=== PATIENT | female | born 1990 | race Caucasian/White ===

== ENCOUNTER 2016-10-12 13:40 | Outpatient (CLI) | payer MEDICAID ==
[~2016-10-12] VITALS: Ht 167.6 cm; Wt 65.8 kg
[2016-10-12] MEDS ORDERED: PRENAT PO (14:05)
[2016-10-12 14:06] VITALS: Ht 167.6 cm; Wt 65.8 kg
[2016-10-12 14:07] VITALS: BP 109/55; PULSE 74; RESP 18
--- NOTE | 2016-10-12 14:30 | RADRPT ---
PROCEDURE: US OB biophysical profile. CLINICAL INDICATION: decreased movements, SROM TECHNIQUE: Multiple sonographic images of the pelvis were obtained. The images were reviewed on a PACS workstation. COMPARISON: No prior studies are available for comparison. FINDINGS: There is a single viable intrauterine gestation. Cardiac activity is present with 119 beats per min herson. There is a vertex presentation. The placenta is anterior. There is no evidence of placental abruption. There is a normal amount of amniotic fluid with an MIRIAM = 12.6 cm. Biophysical profile: movement 2/2 tone 2/2. breathing 2/2 MIRIAM 2/2 Total 10/26 RPTAT: AA . IMPRESSION: Normal biophysical profile. . .Latrell Bear MD, Date Time Electronically viewed and signed by .Latrell Bear MD, MD on 10/12/2016 14:29 .S/
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
--- NOTE | 2016-10-12 18:39 | TRIAGE ---
OB Triage Datetime Report Generated by CPN: 10/12/2016 18:39 Datetime: 10/12/2016 15:39 Membrane Status: Intact Datetime: 10/12/2016 15:17 Vaginal Exam Dilatation (cms): 0.0 Effacement (%): 0 Station: -3 Exam By: OGBODU RN Datetime: 10/12/2016 14:12 Assessment Type: Admission Assessment EGA: 31.5 Maternal Assessment Level of Consciousness: Fully Conscious DTR's/Clonus: DTRs 2+; No Clonus Headache: Denies Blurred Vision: No Respiratory Effort: Unlabored; Regular Rhythm; Equal Expansion Breath Sounds, Left: Clear and Equal Breath Sounds, Right: Clear and Equal Nausea/Vomiting: Denies RUQ Epigastric Pain: Denies Lower Extremities Edema: None Degree: None Upper Extremities Edema: None Degree: None Facial Edema: None Fall Risk Assessment History of Falling: (0) No Secondary Diagnosis: (0) No Ambulatory Aid: (0) Bedrest/Nurse Assist IV Therapy: (0) No Gait: (0) Normal/Bedrest/Immobile Mental Status: (0) Oriented to Own Ability Fall Score: 0 Fall Risk Score Definition: No Risk: No action required Labor Evaluation Frequency: 0 Pattern: Normal: <= 5 Contractions in 10 Minutes Resting Tone [place]: Relaxed Heart Rate FHR Baseline Rate: 130 Monitor Mode: External US FHR Baseline Changes: No Baseline Change Variability: Moderate 6-25 bpm Accelerations: 15X15 Decelerations: None Category: Category I Datetime: 10/12/2016 14:10 Time of Arrival: 10/12/2016 13:30 Arrived By: Ambulatory Arrived From: Home Chief Complaint: R/O SROM Movement: Present Contractions: Denies/Absent Rupture of Membranes: Unsure Vaginal Bleeding: None Vaginal Discharge: Denies Recent Sexual Intercouse: Denies Abdominal Trauma: Not Applicable Patient Complaints: None; Other Time Provider Notified: 10/12/2016 16:30 Provider Notified: DR. MCKENZIE Initial Plan: NST, ROM+, MIRIAM
== END 2016-10-12 17:48 | disposition home or self-care (01) ==
LOC: L-D 13:40 → OBT 13:40
PROVIDERS: ATTEND Obstetrics & Gynecology
DX: O60.03 Preterm labor without delivery, third trimester (principal); O99.333 Smoking (tobacco) complicating pregnancy, third trimester; Z3A.31 31 weeks gestation of pregnancy; F17.200 Nicotine dependence, unspecified, uncomplicated
CPT/HCPCS: 76818; 84112; Z7500; G0463

== ENCOUNTER 2016-11-11 01:37 | Outpatient (CLI) | payer MEDICAID ==
[~2016-11-11] VITALS: Ht 167.6 cm; Wt 67.0 kg
[~2016-11-11 01:37] MED LIST: PRENAT PO
[2016-11-11 01:59] VITALS: Ht 167.6 cm; Wt 67.0 kg
[2016-11-11 02:00] VITALS: BP 113/57; PULSE 95; RESP 18
--- NOTE | 2016-11-11 03:20 | RADRPT ---
PROCEDURE: US OB with biophysical profile. CLINICAL INDICATION: Labor TECHNIQUE: Multiple sonographic images of the pelvis were obtained. The images were reviewed on a PACS workstation. COMPARISON: 10/12/2016 FINDINGS: There is a single live intrauterine gestation. There is a normal amount of amniotic fluid with an MIRIAM = 10.12 cm cm. Cardiac activity is present with 128 beats per minute. There is a vertex presentation. The placenta is anterior and grade 2. MVP = 3.4 cm Biophysical profile: movement 2/2 tone 2/2. breathing 2/2 MIRIAM 2/2 Total 10/26 IMPRESSION: Normal biophysical profile. . RPTAT: HLBE Physician Uday Date Time Electronically viewed and signed by Xiomy Lafleur Physician on 11/11/2016 03:20 LE/
--- NOTE | 2016-11-11 03:23 | RADRPT ---
PROCEDURE: US OB. CLINICAL INDICATION: Labor TECHNIQUE: Multiple sonographic images of the pelvis were obtained. The images were reviewed on a PACS workstation. COMPARISON: 10/12/2016 FINDINGS: There is a single viable intrauterine gestation. Cardiac activity is present with 118-128 beats per minute. There is a vertex presentation. Measurements were made in order to determine age. The results are as follows: BPD =8.61 cm. HC =32.22 cm. AC =32.22 cm. FL =7.32 cm. Estimated gestational age of approximately 36 weeks and 1 day. The estimated date of delivery is 12/08/2016. The EFW = 2915 g (6 pounds 7 ounces) . Complete anatomic survey was not performed. The placenta is anterior. There is no evidence for an abruption or placenta previa. There is a normal amount of amniotic fluid with an MIRIAM = 10.1. IMPRESSION: Single viable intrauterine gestation of approximately 36 weeks and 1 day. The estimated date of del jocelyn is 12/08/2016. Estimated weight is 6 pounds 7 ounces). No abnormality is seen. . RPTAT: HLBE Physician Uday Date Time Electronically viewed and signed by Physician Uday on 11/11/2016 03:22 LE/
[2016-11-11 04:32] LABS: BASOPHILS % 0.2 % (0.0-2.0); EOSINOPHILS # 0.1 10^3/ul (0.0-0.5); EOSINOPHILS % 0.9 % (0.0-7.0); HEMATOCRIT 32.8 % (37.0-47.0); HEMOGLOBIN 11.2 g/dl (12.0-16.0); LYMPHOCYTES # 1.8 10^3/ul (0.8-2.9); LYMPHOCYTES % 18.2 % (15.0-51.0); MEAN CORPUSCULAR HEMOGLOBIN 31.7 pg (29.0-33.0); MEAN CORPUSCULAR HGB CONC 34.1 g/dl (32.0-37.0); MEAN CORPUSCULAR VOLUME 92.9 fl (82.0-101.0); MEAN PLATELET VOLUME 11.2 fl (7.4-10.4); MONOCYTE # 0.9 10^3/ul (0.3-0.9); MONOCYTES % 9.4 % (0.0-11.0); NEUTROPHILS % 70.6 % (39.0-77.0); PLATELET COUNT 263 10^3/UL (140-415); RED BLOOD COUNT 3.53 10^6/ul (4.20-5.40); RED CELL DISTRIBUTION WIDTH 13.2 % (11.5-14.5); WHITE BLOOD COUNT 9.7 10^3/ul (4.8-10.8)
[2016-11-11 04:47] LABS: ADD UMIC YES; UR ASCORBIC ACID NEGATIVE (NEGATIVE); UR BILIRUBIN (Dip) NEGATIVE (NEGATIVE); UR BLOOD (Dip) 3+ mg/dL (NEGATIVE); UR CLARITY CLEAR (CLEAR); UR COLOR STRAW (YELLOW); UR GLUCOSE (Dip) NEGATIVE (NEGATIVE); UR KETONES (Dip) NEGATIVE (NEGATIVE); UR LEUKOCYTE ESTERASE (Dip) NEGATIVE Leu/ul (NEGATIVE); UR NITRITE (Dip) NEGATIVE (NEGATIVE); UR RBC 8 /HPF (0-5); UR SPECIFIC GRAVITY (Dip) 1.006 (1.003-1.030); UR TOTAL PROTEIN (Dip) NEGATIVE (NEGATIVE); UR UROBILINOGEN (Dip) NEGATIVE (NEGATIVE)
[2016-11-11 05:01] LABS: BARBITURATES Negative (NEGATIVE); BENZODIAZEPINES Negative (NEGATIVE); CANNABINOIDS Positive (NEGATIVE); COCAINE Negative (NEGATIVE); OPIATES Negative (NEGATIVE)
--- NOTE | 2016-11-11 06:25 | PN ---
Triage Information Date/Time November 08, 2016 Reason for visit: Vag spotting / bleeding Weeks of Gestation 36 weeks /Para 1 para 0 Diabetes: none Hypertention: none Additional information 26-year-old with IUP at 36 weeks complaining of some bleeding after intercourse. She is unsure about rupture membrane. Denies any decreased movement or uterine contractions. Patient denies any other complaint. Objective Vital Signs Date Time Temp Pulse Resp B/P Pulse Ox O2 Delivery O2 Flow Rate FiO2 11/11/16 02:00 98.2 95 18 113/57 Room Air Heart Rate: 130's Heart Rate Comments Category 1 tracing Contractions between 5-10 minutes on the monitor. Patient does not feel them Patient observed for couple hours in the triage and there was no evidence of bleeding. Scant amount of bleeding during vaginal exam on the glove noted. Sterile vaginal examination: / U tox positive for marijuana. Patient has been using marijuana for anxiety. BPP: 10/26 R OM test negative. MIRIAM: 10.1 Results/Medications Result Diagram: 11/11/16 0325 Results 24 hrs Laboratory Tests Test 11/11/16 01:45 11/11/16 02:33 11/11/16 03:25 Urine Color STRAW Urine Clarity CLEAR Urine pH 7.0 Urine Specific [place] 1.006 Urine Ketones NEGATIVE Urine Nitrite NEGATIVE Urine Bilirubin NEGATIVE Urine Urobilinogen NEGATIVE Urine Leukocyte Esterase NEGATIVE Urine Microscopic RBC 8 H Urine Microscopic WBC 1 Urine Hemoglobin 3+ H Urine Glucose NEGATIVE Urine Total Protein NEGATIVE Urine Opiates Screen Negative Urine Barbiturates Negative Urine Amphetamines Screen Negative Urine Benzodiazepines Screen Negative Urine Cocaine Screen Negative Urine Cannabinoids Positive Membranes Rupture NEGATIVE White Blood Count 9.7 Red Blood Count 3.53 L Hemoglobin 11.2 L Hematocrit 32.8 L Mean Corpuscular Volume 92.9 Mean Corpuscular Hemoglobin 31.7 Mean Corpuscular Hemoglobin Concent 34.1 Red Cell Distribution Width 13.2 Platelet Count 263 Mean Platelet Volume 11.2 H Neutrophils % 70.6 Lymphocytes % 18.2 Monocytes % 9.4 Eosinophils % 0.9 Basophils % 0.2 Nucleated Red Blood Cells % 0.0 Neutrophils # (Manual) 7 Lymphocytes # 1.8 Monocytes # 0.9 Eosinophils # 0.1 Basophils # 0.0 Nucleated Red Blood Cells # 0.0 Imaging Results PROCEDURE: US OB with biophysical profile. CLINICAL INDICATION: Labor TECHNIQUE: Multiple sonographic images of the pelvis were obtained. The images were reviewed on a PACS workstation. COMPARISON: 10/12/2016 FINDINGS: There is a single live intrauterine gestation. There is a normal amount of amniotic fluid with an MIRIAM = 10.12 cm cm. Cardiac activity is present with 128 beats per minute. There is a vertex presentation. The placenta is anterior and grade 2. MVP = 3.4 cm Biophysical profile: movement 2/2 tone 2/2. breathing 2/2 MIRIAM 2/2 Total 88 IMPRESSION: Normal biophysical profile. ROCEDURE: US OB. CLINICAL INDICATION: Labor TECHNIQUE: Multiple sonographic images of the pelvis were obtained. The images were reviewed on a PACS workstation. COMPARISON: 10/12/2016 FINDINGS: There is a single viable intrauterine gestation. Cardiac activity is present with 118-128 beats per minute. There is a vertex presentation. Measurements were made in order to determine age. The results are as follows: BPD = 8.61 cm. HC = 32.22 cm. AC = 32.22 cm. FL = 7.32 cm. Estimated gestational age of approximately 36 weeks and 1 day. The estimated date of delivery is 12/08/2016. The EFW = 2915 g (6 pounds 7 ounces) . Complete anatomic survey was not performed. The placenta is anterior. There is no evidence for an abruption or placenta previa. There is a normal amount of amniotic fluid with an MIRIAM = 10.1. IMPRESSION: Single viable intrauterine gestation of approximately 36 weeks and 1 day. The estimated date of delivery is 12/08/2016. Estimated weight is 6 pounds 7 ounces). No abnormality is seen. . Disposition: Discharge Assessment/Plan IUP at 36 week No evidence of SROM or labor Rh+ Postcoital bleeding Stopped. No evidence of bleeding during monitoring in triage noted testing reassuring. Patient will be discharged home. Strict labor precaution and kick count and follow-up with primary OB office within 24 hours discussed Pelvic rest and modified bedrest at home suggested. Patient verbalized understanding. All questions were answered. AMELIA STEINER MD Nov 11, 2016 06:25
--- NOTE | 2016-11-11 06:55 | TRIAGE ---
OB Triage Datetime Report Generated by CPN: 11/11/2016 06:55 Datetime: 11/11/2016 05:30 Stage of : OB Triage Labor Evaluation Frequency: IRREG Monitor Mode: External Duration (sec)2399: 50-80 Quality: Mild Pattern: Normal: <= 5 Contractions in 10 Minutes Resting Tone [place]: Relaxed Heart Rate FHR Baseline Rate: 120 Monitor Mode: External US Variability: Moderate 6-25 bpm Accelerations: 15X15 Decelerations: None Category: Category I Pain Assessment Pain Scale: 3 Pain Presence: Intermittent Pain Type: Cramping Pain Location: Abdomen Pain Goal: 3 Pain Relief Measures: Comfort Measures Datetime: 11/11/2016 04:30 Stage of : OB Triage Labor Evaluation Frequency: IRREG Monitor Mode: External Duration (sec)2399: 50-80 Quality: Mild Pattern: Normal: <= 5 Contractions in 10 Minutes Resting Tone [place]: Relaxed Heart Rate FHR Baseline Rate: 120 Monitor Mode: External US Variability: Moderate 6-25 bpm Accelerations: 15X15 Decelerations: None Category: Category I Pain Assessment Pain Scale: 3 Pain Presence: Intermittent Pain Type: Cramping Pain Location: Abdomen Pain Goal: 3 Pain Relief Measures: Comfort Measures Datetime: 11/11/2016 03:30 Stage of : OB Triage Labor Evaluation Frequency: 3-6 Monitor Mode: External Duration (sec)2399: 50-80 Quality: Mild Pattern: Normal: <= 5 Contractions in 10 Minutes Resting Tone [place]: Relaxed Heart Rate FHR Baseline Rate: 120 Monitor Mode: External US Variability: Moderate 6-25 bpm Accelerations: 15X15 Decelerations: None Category: Category I Pain Assessment Pain Scale: 3 Pain Presence: Intermittent Pain Type: Cramping Pain Location: Abdomen Pain Goal: 3 Pain Relief Measures: Comfort Measures Datetime: 11/11/2016 02:30 Stage of : OB Triage Temperature Route: Oral Labor Evaluation Frequency: 2-7 Monitor Mode: External Duration (sec)2399: 50-80 Quality: Mild Pattern: Normal: <= 5 Contractions in 10 Minutes Resting Tone [place]: Relaxed Heart Rate FHR Baseline Rate: 125 Monitor Mode: External US Variability: Moderate 6-25 bpm Accelerations: 15X15 Decelerations: None Category: Category I Pain Assessment Pain Scale: 3 Pain Presence: Intermittent Pain Type: Cramping Pain Location: Abdomen Pain Goal: 3 Pain Relief Measures: Comfort Measures Datetime: 11/11/2016 02:20 Vaginal Exam Dilatation (cms): 1.0 Effacement (%): 60 Station: -2 Exam By: DARREN Vaginal Bleeding: Small Pool: Negative Cervix, Consistency: Moderate Cervix, Position: Posterior Datetime: 11/11/2016 02:01 Time of Arrival: 11/11/2016 01:30 EGA: 36.0 Arrived By: Wheelchair Arrived From: Home Chief Complaint: BLEEDING POST INTERCOURSE POSSIBLE SROM AND CXS Movement: Present Time Contractions Began: 11/11/2016 01:00 Rupture of Membranes: Unsure Vaginal Discharge: Present Recent Sexual Intercouse: Yes Abdominal Trauma: Not Applicable Additional Patient Complaints: TAKES MEDICAL MARIJUANA FOR ANXIETY, SMOKED IN AM Time Provider Notified: 11/11/2016 02:05 Provider Notified: JATIN Initial Plan: EFM, ASSESS, CALL MD FOR ORDERS Datetime: 11/11/2016 01:58 Assessment Type: Triage Maternal Assessment Level of Consciousness: Fully Conscious DTR's/Clonus: DTRs 2+; No Clonus Headache: Denies Blurred Vision: No Respiratory Effort: Unlabored; Regular Rhythm; Equal Expansion Breath Sounds, Left: Clear and Equal Breath Sounds, Right: Clear and Equal Nausea/Vomiting: Denies RUQ Epigastric Pain: Denies Lower Extremities Edema: None Upper Extremities Edema: None Facial Edema: None Fall Risk Assessment History of Falling: (0) No Secondary Diagnosis: (0) No Ambulatory Aid: (0) Bedrest/Nurse Assist IV Therapy: (0) No Gait: (0) Normal/Bedrest/Immobile Mental Status: (0) Oriented to Own Ability Fall Score: 0 Fall Risk Score Definition: No Risk: No action required Datetime: 10/12/2016 16:30 Labor Evaluation Frequency: 0 Monitor Mode: External Duration (sec)2399: 0 Resting Tone [place]: Relaxed Contraction Comments: NO UC'S NOTED Heart Rate FHR Baseline Rate: 135 Monitor Mode: External US Variability: Moderate 6-25 bpm Accelerations: 15X15 Decelerations: None Category: Category I Datetime: 10/12/2016 15:29 Labor Evaluation Frequency: 0 Monitor Mode: External Duration (sec)2399: 0 Resting Tone [place]: Relaxed Heart Rate FHR Baseline Rate: 125 Monitor Mode: External US Variability: Moderate 6-25 bpm Accelerations: 15X15 Decelerations: None Category: Category I Datetime: 10/12/2016 15:00 Maternal Assessment Level of Consciousness: Fully Conscious DTR's/Clonus: DTRs 2+; No Clonus Headache: Denies Blurred Vision: No Respiratory Effort: Unlabored; Regular Rhythm; Equal Expansion Breath Sounds, Left: Clear and Equal Breath Sounds, Right: Clear and Equal Nausea/Vomiting: Denies RUQ Epigastric Pain: Denies Facial Edema: None Fall Risk Assessment History of Falling: (0) No Secondary Diagnosis: (0) No Ambulatory Aid: (0) Bedrest/Nurse Assist IV Therapy: (0) No Gait: (0) Normal/Bedrest/Immobile Mental Status: (0) Oriented to Own Ability Fall Score: 0 Fall Risk Score Definition: No Risk: No action required Datetime: 10/12/2016 14:12 EGA: 31.5 Fall Score: 0 Fall Risk Score Definition: No Risk: No action required
== END 2016-11-11 05:40 | disposition home or self-care (01) ==
LOC: OBT 01:37 → L-D 01:40 → OBT 05:40
PROVIDERS: ATTEND Obstetrics & Gynecology
DX: O20.8 Other hemorrhage in early pregnancy (principal); Z3A.36 36 weeks gestation of pregnancy
CPT/HCPCS: 76815; 76818; 80307; 81001; 84112; 85025; Z7500; G0463

== ENCOUNTER 2016-11-22 00:10 | Outpatient (CLI) | payer MEDICAID ==
[~2016-11-22] VITALS: Ht 170.2 cm; Wt 67.2 kg
[2016-11-22 01:24] VITALS: Ht 170.2 cm; Wt 67.2 kg
[2016-11-22 01:25] VITALS: BP 108/64; PULSE 83; RESP 18
[2016-11-22 02:07] LABS: ADD UMIC NO; UR ASCORBIC ACID NEGATIVE (NEGATIVE); UR BACTERIA FEW /HPF (NONE SEEN); UR BILIRUBIN (Dip) NEGATIVE (NEGATIVE); UR BLOOD (Dip) NEGATIVE (NEGATIVE); UR CLARITY SLIGHTLY CLOUDY (CLEAR); UR COLOR YELLOW (YELLOW); UR GLUCOSE (Dip) NEGATIVE (NEGATIVE); UR KETONES (Dip) NEGATIVE (NEGATIVE); UR LEUKOCYTE ESTERASE (Dip) NEGATIVE Leu/ul (NEGATIVE); UR MUCUS FEW /HPF (NONE SEEN); UR NITRITE (Dip) NEGATIVE (NEGATIVE); UR RBC 1 /HPF (0-5); UR SPECIFIC GRAVITY (Dip) 1.018 (1.003-1.030); UR SQUAMOUS EPITHELIAL CELL FEW /HPF (FEW); UR TOTAL PROTEIN (Dip) NEGATIVE (NEGATIVE); UR UROBILINOGEN (Dip) 1+ mg/dL (NEGATIVE)
[2016-11-22 02:36] LABS: BARBITURATES Negative (NEGATIVE); BENZODIAZEPINES Negative (NEGATIVE); CANNABINOIDS Positive (NEGATIVE); COCAINE Negative (NEGATIVE); OPIATES Negative (NEGATIVE)
[2016-11-22] MEDS ORDERED: LACTATED RINGER'S 1,000 ML IV ONE (03:30)
--- NOTE | 2016-11-22 06:04 | TRIAGE ---
OB Triage Datetime Report Generated by CPN: 11/22/2016 06:04 Datetime: 11/22/2016 05:12 Stage of : OB Triage Datetime: 11/22/2016 04:15 Stage of : OB Triage Labor Evaluation Frequency: OCC Monitor Mode: External Duration (sec)2399: 40-80 Quality: Mild Pattern: Normal: <= 5 Contractions in 10 Minutes Resting Tone [place]: Relaxed Heart Rate FHR Baseline Rate: 125 Monitor Mode: External US FHR Baseline Changes: No Baseline Change Variability: Moderate 6-25 bpm Accelerations: 15X15 Decelerations: None Category: Category I Datetime: 11/22/2016 03:15 Stage of : OB Triage Labor Evaluation Frequency: OCC Monitor Mode: External Duration (sec)2399: 40-100 Quality: Mild Pattern: Normal: <= 5 Contractions in 10 Minutes Resting Tone [place]: Relaxed Heart Rate FHR Baseline Rate: 125 Monitor Mode: External US FHR Baseline Changes: No Baseline Change Variability: Moderate 6-25 bpm Accelerations: 15X15 Decelerations: None Category: Category I Datetime: 11/22/2016 02:15 Stage of : OB Triage Labor Evaluation Frequency: IRREG Monitor Mode: External Duration (sec)2399: 40-60 Quality: Mild Pattern: Normal: <= 5 Contractions in 10 Minutes Resting Tone [place]: Relaxed Heart Rate FHR Baseline Rate: 125 Monitor Mode: External US FHR Baseline Changes: No Baseline Change Variability: Moderate 6-25 bpm Accelerations: 15X15 Decelerations: None Category: Category I Datetime: 11/22/2016 01:15 Stage of : OB Triage Labor Evaluation Frequency: 5-10 Monitor Mode: External Duration (sec)2399: 70-120 Quality: Mild Pattern: Normal: <= 5 Contractions in 10 Minutes Resting Tone [place]: Relaxed Heart Rate FHR Baseline Rate: 125 Monitor Mode: External US Variability: Moderate 6-25 bpm Accelerations: 15X15 Decelerations: None Category: Category I Datetime: 11/22/2016 00:40 Vaginal Exam Dilatation (cms): 1.0 Effacement (%): 60 Station: -2 Exam By: Shankar VIVAS Datetime: 11/22/2016 00:30 Stage of : OB Triage Assessment Type: Triage Time Provider Notified: 11/22/2016 00:53 Maternal Assessment Level of Consciousness: Fully Conscious DTR's/Clonus: DTRs 2+; No Clonus Headache: Denies Blurred Vision: No Respiratory Effort: Unlabored; Regular Rhythm; Equal Expansion Breath Sounds, Left: Clear and Equal Breath Sounds, Right: Clear and Equal Nausea/Vomiting: Denies RUQ Epigastric Pain: Denies Lower Extremities Edema: None Degree: None Upper Extremities Edema: None Degree: None Facial Edema: None Temperature Route: Oral Fall Risk Assessment History of Falling: (0) No Secondary Diagnosis: (0) No Ambulatory Aid: (0) Bedrest/Nurse Assist IV Therapy: (0) No Gait: (0) Normal/Bedrest/Immobile Mental Status: (0) Oriented to Own Ability Fall Score: 0 Fall Risk Score Definition: No Risk: No action required Pain Assessment Pain Scale: 7 Pain Presence: Constant Pain Type: Sharp; Pressure Pain Location: Abdomen (Annotations: LOWER ABDOMEN) Pain Relief Measures: Comfort Measures Datetime: 11/22/2016 00:28 Contraction Comments: APPLIED Comments: APPLIED Datetime: 11/22/2016 00:15 Time of Arrival: 11/22/2016 00:12 EGA: 37.4 Arrived By: Wheelchair Arrived From: Emergency Dept Chief Complaint: LOWER ABDOMINAL PAIN SINCE 12PM Movement: Present Contractions: Irregular Rupture of Membranes: Denies Vaginal Bleeding: None Vaginal Discharge: Denies Recent Sexual Intercouse: Denies Abdominal Trauma: Not Applicable Patient Complaints: Other Initial Plan: EFM, SVE, CALL OB Datetime: 11/11/2016 02:01 EGA: 36.0 Datetime: 11/11/2016 01:58 Fall Score: 0 Fall Risk Score Definition: No Risk: No action required Datetime: 10/12/2016 15:00 Fall Score: 0 Fall Risk Score Definition: No Risk: No action required Datetime: 10/12/2016 14:12 EGA: 31.5 Fall Score: 0 Fall Risk Score Definition: No Risk: No action required
--- NOTE | 2016-11-22 06:59 | PN ---
Triage Information Date/Time 11/22/1607/05/649 Reason for visit: Abd/pelvic pain Weeks of Gestation 37w4d /Para primigravida Diabetes: none Hypertention: none Additional information daviea user Objective Vital Signs Date Time Temp Pulse Resp B/P Pulse Ox O2 Delivery O2 Flow Rate FiO2 11/22/16 01:25 98.0 83 18 108/64 Room Air Heart Rate: 130's Heart Rate Comments reactive Exam VE 605/-2 last visit on 11/11/16 same Results/Medications Results 24 hrs Laboratory Tests Test 11/22/16 01:35 Urine Color YELLOW Urine Clarity SLIGHTLY CLOUDY A Urine pH 6.0 Urine Specific [place] 1.018 Urine Ketones NEGATIVE Urine Nitrite NEGATIVE Urine Bilirubin NEGATIVE Urine Urobilinogen 1+ H Urine Leukocyte Esterase NEGATIVE Urine Microscopic RBC 1 Urine Microscopic WBC 3 Urine Squamous Epithelial Cells FEW Urine Bacteria FEW A Urine Mucus FEW A Urine Hemoglobin NEGATIVE Urine Glucose NEGATIVE Urine Total Protein NEGATIVE Urine Opiates Screen Negative Urine Barbiturates Negative Urine Amphetamines Screen Negative Urine Benzodiazepines Screen Negative Urine Cocaine Screen Negative Urine Cannabinoids Positive Medications IV hydration Disposition: Discharge Assessment/Plan IUP 37w4d pelvic pain NIL Plan discharge home with routine labor instructions CAITLYN PERALTA MD Nov 22, 2016 06:59
== END 2016-11-22 05:12 | disposition home or self-care (01) ==
LOC: OBT 00:10 → L-D 00:17 → OBT 05:12
PROVIDERS: ATTEND Obstetrics & Gynecology
DX: O26.893 Other specified pregnancy related conditions, third trimester (principal); Z3A.37 37 weeks gestation of pregnancy; R10.2 Pelvic and perineal pain
CPT/HCPCS: 36415; 80307; 81001; 96360; J7120; Z7500; 81003; G0463

== ENCOUNTER 2016-12-08 15:29 | Inpatient (IN) | payer MEDICAID ==
[~2016-12-08] VITALS: Ht 170.2 cm; Wt 69.0 kg
[2016-12-08 16:06] VITALS: BP 111/62; PULSE 103; RESP 18; Ht 170.2 cm; Wt 69.0 kg
--- NOTE | 2016-12-08 16:31 | TRIAGE ---
OB Triage Datetime Report Generated by CPN: 12/08/2016 16:31 Datetime: 12/08/2016 16:23 Vaginal Exam Dilatation (cms): 7.0 Effacement (%): 90 Station: -2 Exam By: khemani Membrane Status: Bulging Vaginal Bleeding: None Cervix, Consistency: Soft Cervix, Position: Midposition Datetime: 12/08/2016 16:10 Assessment Type: Admission Assessment Maternal Assessment Level of Consciousness: Fully Conscious DTR's/Clonus: DTRs 2+; No Clonus Headache: Denies Blurred Vision: No Respiratory Effort: Unlabored; Regular Rhythm; Equal Expansion Breath Sounds, Left: Clear and Equal Breath Sounds, Right: Clear and Equal Nausea/Vomiting: Denies RUQ Epigastric Pain: Denies Lower Extremities Edema: None Degree: None Upper Extremities Edema: None Degree: None Facial Edema: None Fall Risk Assessment History of Falling: (0) No Secondary Diagnosis: (0) No Ambulatory Aid: (0) Bedrest/Nurse Assist IV Therapy: (0) No Gait: (0) Normal/Bedrest/Immobile Mental Status: (0) Oriented to Own Ability Fall Score: 0 Fall Risk Score Definition: No Risk: No action required Labor Evaluation Frequency: IRREGULAR Monitor Mode: External Duration (sec)2399: 50-130 Quality: Mild Pattern: Normal: <= 5 Contractions in 10 Minutes Resting Tone Overlea: Relaxed Heart Rate FHR Baseline Rate: 135 Monitor Mode: External US Variability: Moderate 6-25 bpm Accelerations: 15X15 Decelerations: None Category: Category I Datetime: 12/08/2016 16:09 Time of Arrival: 12/08/2016 15:30 EGA: 39.6 Arrived By: Ambulatory Arrived From: Home Chief Complaint: uc's since 0000 Movement: Decreased Contractions: Regular Time Contractions Began: 12/08/2016 00:00 Rupture of Membranes: Denies Vaginal Bleeding: None Vaginal Discharge: Denies Recent Sexual Intercouse: Denies Abdominal Trauma: Not Applicable Patient Complaints: Contractions Time Provider Notified: 12/08/2016 16:25 Provider Notified: ARDALAN Initial Plan: nst Datetime: 11/22/2016 00:30 Fall Score: 0 Fall Risk Score Definition: No Risk: No action required Datetime: 11/22/2016 00:15 EGA: 37.4 Datetime: 11/11/2016 02:01 EGA: 36.0 Datetime: 11/11/2016 01:58 Fall Score: 0 Fall Risk Score Definition: No Risk: No action required Datetime: 10/12/2016 15:00 Fall Score: 0 Fall Risk Score Definition: No Risk: No action required Datetime: 10/12/2016 14:12 EGA: 31.5 Fall Score: 0 Fall Risk Score Definition: No Risk: No action required
[2016-12-08] MEDS ORDERED: LACTATED RINGER'S 1,000 ML IV SCH (16:33)
[2016-12-08] MEDS ORDERED: LIDOCAINE 1% (MPF) 30 ML INJ INJ PRN (17:00)
[2016-12-08] MEDS ORDERED: CARBOPROST 250 MCG INJ IM PRN ×2 (17:00→23:00)
[2016-12-08] MEDS ORDERED: AMPICILLIN 2 GM/NS (PMX) 100 ML IV ONE (17:00)
[2016-12-08] MEDS ORDERED: OXYTOCIN 30 UNITS/LR 500 ML IV PRN ×2 (17:00→23:00)
[2016-12-08] MEDS ORDERED: OXYTOCIN 30 UNITS/LR 500 ML IV SCH ×3 (17:00→23:00)
[2016-12-08] MEDS ORDERED: IBUPROFEN 600 MG TAB PO PRN (17:00)
[2016-12-08] MEDS ORDERED: LACTATED RINGER'S 1,000 ML IV PRN (17:00)
[2016-12-08] MEDS ORDERED: BUTORPHANOL 2 MG INJ IV PRN (17:00)
[2016-12-08] MEDS ORDERED: METHYLERGONOVINE 0.2 MG INJ IM PRN ×2 (17:00→23:00)
[2016-12-08] MEDS ORDERED: MISOPROSTOL 200 MCG TAB PR PRN ×2 (17:00→23:00)
--- NOTE | 2016-12-08 17:17 | HP ---
Date/Time of Note Date/Time of Note DATE: 12/08/16 TIME: 17:13 OB - History Hx of Present Free Text/Dictation Labor pain Chief Complaint: Contractions Estimated Due Date: Dec 09, 2016 : 1 Para: 0 Spontaneous : 0 Therapeutic : 0 Care: Limited Care Abnormal Ultrasound Findings: 26-year-old with IUP at 39 weeks and 6 days with care with Dr. Barillas, late entry presents with a complaint of contractions since this morning. She denies any leaking of fluid, vaginal bleeding or decreased movement. Antepartum course was complicated by late start care. This started at 24 weeks. She needs testing. Also past medical history significant for history of bipolar disorder and depression. Was not a medication was following by therapist. She was noted to be 7 cm dilated with bulging bag of water NST was reactive.. GBS negative Obstetrical Complications: None Past Family/Social History * Past Medical, Surgical, Family and Obstetric Histories reviewed from chart. Blood Type: O+ Rubella: immune RPR/VDRL: Negative GBS Status: Negative HBsAG: Negative OB Admission Exam Vital Signs Vital Signs Vital Signs Date Time Temp Pulse Resp B/P Pulse Ox O2 Delivery O2 Flow Rate FiO2 12/08/16 16:06 98.7 103 18 111/62 Room Air Physical Exam HEENT: WNL Lungs: Clear Abdomen: WNL Extremities: Normal Reflexes: Normal Cervical Dilatation: 7cm Effacement: 75% Station: -1 Membranes: Intact Heart Rate: 130's Accelerations: Accelerations Present Decelerations: No Decelerations Varibility: Moderate Contractions on Admission: < 5 Minutes Apart Intensity: Moderate OB Assessment/Plan Reason for admission: active labor Other Assessment: IUP at 39 weeks and 6 days Active labor GBS positive Late entry. Started care at 24 weeks. History of bipolar and depression. Not on meds. Followed by therapist History of substance abuse. U tox was positive for marijuana during . Admit the patient. Start penicillin for GBS prophylaxis Anticipate AMELIA COLLAZO MD Dec 08, 2016 17:17
[2016-12-08 17:30] LABS: BASOPHILS % 0.2 % (0.0-2.0); EOSINOPHILS % 0.2 % (0.0-7.0); HEMATOCRIT 33.2 % (37.0-47.0); HEMOGLOBIN 11.7 g/dl (12.0-16.0); LYMPHOCYTES # 1.7 10^3/ul (0.8-2.9); LYMPHOCYTES % 12.5 % (15.0-51.0); MEAN CORPUSCULAR HEMOGLOBIN 32.4 pg (29.0-33.0); MEAN CORPUSCULAR HGB CONC 35.2 g/dl (32.0-37.0); MONOCYTE # 0.9 10^3/ul (0.3-0.9); NEUTROPHIL # 10.8 10^3/ul (1.6-7.5); NEUTROPHILS % 79.6 % (39.0-77.0); PLATELET COUNT 242 10^3/UL (140-415); RED BLOOD COUNT 3.61 10^6/ul (4.20-5.40); RED CELL DISTRIBUTION WIDTH 13.3 % (11.5-14.5); WHITE BLOOD COUNT 13.5 10^3/ul (4.8-10.8)
[2016-12-08 17:46] LABS: INR 0.9; PROTIME 12.1 Sec (12.2-14.2); PT RATIO 0.9
[2016-12-08 18:23] LABS: BARBITURATES Negative (NEGATIVE); BENZODIAZEPINES Negative (NEGATIVE); COCAINE Negative (NEGATIVE); OPIATES Negative (NEGATIVE)
[2016-12-08 18:24] LABS: CANNABINOIDS Positive (NEGATIVE)
[2016-12-08] MEDS ORDERED: LACTATED RINGER'S 1,000 ML IV ONE (18:24)
[2016-12-08] MEDS ORDERED: FENTAnyl 2MCG/ML-ROPIV 0.2% 100 ML ONE (18:28)
[2016-12-08] MEDS ORDERED: morphine 2 MG INJ IV PRN (18:30)
[2016-12-08] MEDS ORDERED: ONDANSETRON 4 MG INJ IV ONE (18:30)
[2016-12-08] MEDS ORDERED: NALBUPHINE HCL (10 MG/1 ML) INJ IV PRN (18:30)
[2016-12-08] MEDS ORDERED: KETOROLAC 30 MG INJ IV PRN (18:30)
[2016-12-08] MEDS ORDERED: NALOXONE (0.4 MG/ML) INJ IV PRN (18:30)
[2016-12-08] MEDS ORDERED: ONDANSETRON 4 MG INJ IV PRN ×2 (18:30→23:00)
[2016-12-08] MEDS ORDERED: CITRIC ACID/NA CITRATE 30 ML CUP PO ONE (18:30)
[2016-12-08] MEDS ORDERED: TRIMETHOBENZAMIDE 100 MG/ML VIAL IM PRN (18:30)
[2016-12-08] MEDS ORDERED: FENTAnyl 2MCG/ML-ROPIV 0.2% 100 ML BAG EPI SCH (18:30)
[2016-12-08] MEDS ORDERED: morphine 4 MG/ML VIAL IV PRN (18:30)
[2016-12-08] MEDS ORDERED: DIPHENHYDRAMINE 50 MG INJ IV PRN (18:30)
[2016-12-08] MEDS ORDERED: AMPICILLIN 1 GM/NS (PMX) 50 ML IV SCH (21:00)
[2016-12-08] MEDS ORDERED: LACTATED RINGER'S 1,000 ML IV* SCH (22:38)
--- NOTE | 2016-12-08 22:38 | LDN ---
Date/Time of Note Date/Time of Note DATE: 12/08/16 TIME: 22:36 Delivery Summary 12/08/2016 Placenta Delivered: Spontaneously Meconium: none Episiotomy: No Perineal laceration: 0 Laceration repair: first degree RT labial laceration repaired using 3-0 chromic Anesthesia type: Epidural Estimated blood loss: 400 Sponge & Needle done & correct: Yes All needle counts correct: Yes Any foreign bodies felt in the: No Problems: Infant Delivery Information Sex Infant Sex: female Apgars 1 Minute: 9 5 Minute: 9 Suctioning Nose & mouth suctioned at alexander: Yes Delee suction performed: Yes Umbilical Cord Umbilical cord with: 3 Vessels Cord presentations: no nuchal cord Cord Blood was obtained: Yes AMELIA STEINER MD Dec 08, 2016 22:38
[2016-12-08] MEDS ORDERED: ZOLPIDEM 5 MG TAB PO PRN (23:00)
[2016-12-08] MEDS ORDERED: LANOLIN 7 GM TUBE TOP PRN (23:00)
[2016-12-08] MEDS ORDERED: WITCH HAZEL/GLYCERIN PAD PR PRN (23:00)
[2016-12-08] MEDS ORDERED: DIPHENHYDRAMINE 25 MG CAP PO PRN (23:00)
[2016-12-09 00:10] VITALS: BP 117/69; PULSE 81; RESP 18
[2016-12-09] MEDS: IBUPROFEN 600 MG TAB PO SCH ×4 (00:38→17:10)
[2016-12-09 08:30] VITALS: BP 102/63; PULSE 69; RESP 17
[2016-12-09] MEDS: SENNA/DOCUSATE NA (8.6MG/50MG) TAB PO SCH ×2 (09:58→21:36)
[2016-12-09] MEDS: PRENATAL VITAMIN PO SCH (09:58)
[2016-12-09 10:35] LABS: HEMATOCRIT 30.8 % (37.0-47.0); HEMOGLOBIN 10.1 g/dl (12.0-16.0)
--- NOTE | 2016-12-09 13:36 | QN ---
Documentation Comment ppd1 pt doing well vss exam wnl a/p pd 1 continue care MURIEL VELAZCO MD Dec 09, 2016 13:36
[2016-12-09 16:00] VITALS: BP 104/62; PULSE 61; RESP 18
[2016-12-09 20:00] VITALS: BP 100/60; PULSE 65; RESP 17
[2016-12-10 04:05] VITALS: BP 107/61; PULSE 71; RESP 17
[2016-12-10] MEDS: IBUPROFEN 600 MG TAB PO SCH ×3 (05:48→11:48)
[2016-12-10 08:30] VITALS: BP 113/59; PULSE 59; RESP 18
[2016-12-10] MEDS: SENNA/DOCUSATE NA (8.6MG/50MG) TAB PO SCH (09:58)
[2016-12-10] MEDS: PRENATAL VITAMIN PO SCH (09:58)
--- NOTE | 2016-12-10 10:30 | PN ---
Date/Time of Note Date/Time of Note DATE: 12/10/16 TIME: 10:27 OB Subjective Subjective Subjective No complaints. Ready to go home. OB Objective Objective Objective Gen: NAD Abd: FF OB Assessment/Plan Other Assessment: PPD2 s/p Other plan: Discharge home. Pelvic rest. F/u with OB clinic. NANCY GROSS Dec 10, 2016 10:30
--- NOTE | 2016-12-10 10:32 | DS ---
Date/Time of Note Date/Time of Note DATE: 12/10/16 TIME: 10:31 Obstetrical Discharge Record Final Diagnosis Final Diagnosis: Term delivered Vaginal Delivery Obstetrical Delivery: Spontaneous Complications Other Condition on Discharge Physical Assessment Last Vitals: See PN Patient Condition: Good NANCY GROSS Dec 10, 2016 10:32
[2016-12-10] MEDS ORDERED: DIPHTH/TET/ACEL PERTUSS (ADULT) 0.5 ML VIAL IM* ONE (11:00)
== END 2016-12-10 13:50 | disposition home or self-care (01) | DRG 775 ==
LOC: OBT 15:29 → L-D 15:31 → OBT 16:25 → PP1 23:59
PROVIDERS: ADMIT Obstetrics & Gynecology; ATTEND Obstetrics & Gynecology
PROC: 10E0XZZ Delivery of Products of Conception, External Approach (ICD-10-PCS; principal; 2016-12-08)
PROC: 0HQ9XZZ Repair Perineum Skin, External Approach (ICD-10-PCS; 2016-12-08)
DX: O70.0 First degree perineal laceration during delivery (principal); Z37.0 Single live birth; Z3A.39 39 weeks gestation of pregnancy
CPT/HCPCS: 36415; 62319; 80307; 85014; 85018; 85025; 85610; 85730; 86592; 86900; 86901; 87340; 90715; G0463; J0290; J2405; J2590; J3010; J7120